=== PATIENT | female | born 1970 | race Caucasian/White ===

== ENCOUNTER 2016-11-08 20:28 | Emergency (ER) | payer OTHER ==
[~2016-11-08] VITALS: Ht 162.6 cm; Wt 105.1 kg
[2016-11-08 21:15] LABS: ADD MIUA? YES; BILIRUBIN NEGATIVE; BLOOD MODERATE; COLOR YELLOW ((YELLOW)); GLUCOSE (STRIP) NEGATIVE; KETONES NEGATIVE; LEUKOCYTES NEGATIVE; NITRITE NEGATIVE; PROTEIN (STRIP) NEGATIVE; SPECIFIC GRAVITY 1.016 (1.000-1.030); UROBILINOGEN 0.2 MG/DL (0.2-1.0)
[2016-11-08 21:19] LABS: BACTERIA NONE SEEN /HPF; EPITHELIAL CELLS 1+ /HPF; MUCUS TRACE /LPF; RED BLOOD CELLS 0-5 /HPF (0-5); WHITE BLOOD CELLS 0-5 /HPF (0-5)
[2016-11-08 21:56] LABS: EOSINOPHIL (%) 1.5 % (0-5); EOSINOPHIL COUNT 0.1 K/uL (0-0.3); HEMATOCRIT 42.5 % (36.0-46.0); IMMATURE GRANULOCYTE (%) 0.2 % (0.0-0.7); INSTRUMENT ABS NEUTROPHIL CT 5.6 K/uL; LYMPHOCYTE COUNT 2.8 K/uL (1.0-2.8); MCHC 32.9 G/DL (30.0-36.0); MEAN PLAT.VOLUME 11.2 uM^3 (9.5-12.4); MONOCYTE (%) 5.7 % (3-12); MONOCYTE COUNT 0.5 K/uL (0-0.8); NEUTROPHIL (%) 61.4 % (45-76); NEUTROPHIL COUNT 5.6 K/uL (1.8-6.4); PLATELET COUNT 293 K/uL (156-360); RBC DIS.WIDTH-CV 12.8 % (11.8-14.6); RBC DIS.WIDTH-SD 42.1 % (39-53); RED BLOOD COUNT 4.67 M/uL (3.80-5.20); WHITE BLOOD COUNT 9.1 K/uL (4.1-10.2)
[2016-11-08 22:04] LABS: CHLORIDE 104 mEq/L (99-109); POTASSIUM 4.1 mEq/L (3.7-5.4); SODIUM 138 mEq/L (136-147)
[2016-11-08 22:06] LABS: GLUCOSE 99 mg/dL (70-99)
[2016-11-08 22:07] LABS: ANION GAP 11 MEQ/L (2-14)
[2016-11-08 22:08] LABS: TOTAL BILIRUBIN 0.5 mg/dL (0.0-1.0)
[2016-11-08 22:09] LABS: ALKALINE PHOSPHATASE 55 IU/L (3-129)
[2016-11-08 22:10] LABS: GFR ESTIMATE (CALCULATED) > 59 mL/min/
[2016-11-08 22:11] LABS: UREA NITROGEN (BUN) 16 mg/dL (9-23)
[2016-11-08 22:18] LABS: QUANTITATIVE HCG < 4.0 MIU/ML
[2016-11-08] MEDS ORDERED: NORCO 5/3251 TABLET PO (22:46)
[2016-11-08] MEDS ORDERED: ZOFRAN ODT8 MG PO (22:46)
[2016-11-08 23:03] VITALS: BP 108/57
== END 2016-11-08 23:14 | disposition home or self-care (01) ==
LOC: EME 20:28
PROVIDERS: Physician Assistant
DX: R10.9 Unspecified abdominal pain (principal); J45.909 Unspecified asthma, uncomplicated
CPT/HCPCS: 74176; 80053; 81003; 84702; 85025; 99281; 99285; J2270; J2405